=== PATIENT | male | born 1985 | race Hispanic/Latino ===

== ENCOUNTER 2019-10-14 14:02 | Outpatient (CLI) | payer OTHER ==
--- NOTE | 2019-10-14 15:00 | RAD ---
RADIOGRAPH LEFT RIBS 3 VIEWS: HISTORY: 34-year-old male with 4 months of left rib pain FINDINGS: No evidence of fracture or destructive osseous lesion. IMPRESSION: Negative
== END 2019-10-14 14:03 | disposition home or self-care (01) ==
LOC: BICRAD 14:02
PROVIDERS: ATTEND Nurse Practitioner Family
DX: R07.9 Chest pain, unspecified (principal)